=== PATIENT | female | born 1990 | race Caucasian/White ===

== ENCOUNTER → 2017-01-27 | Outpatient (CLI) | payer OTHER, BC ==
--- NOTE | 2017-01-27 12:12 | DI ---
HISTORY: Increasing left foot pain over the past four weeks in the distal plantar area. Patient sta uziel history of neuroma removal four years ago. FINDINGS: Examination reveals no definite evidence of fracture or dislocation. IMPRESSION: 1. No acute osseous abnormalities. Clinical correlation is requested.
== END ==
LOC: MOB LAB 11:35
PROVIDERS: ATTEND Physician Assistant Medical
DX: M79.672 Pain in left foot (principal)
CPT/HCPCS: 73630